=== PATIENT | female | born 1965 | race Hispanic/Latino ===

== ENCOUNTER 2017-04-23 13:46 | Outpatient (CLI) | payer OTHER ==
--- NOTE | 2017-04-23 16:33 | Mammography Report ---
BONE DEXA:04/23/17 13:46:00 CLINICAL: Postmenopausal. COMPARISON: 02/11/14 TECHNIQUE: Two site bone DEXA performed on an Hologic scanner. FINDINGS: The average BMD of the lumbar spine L1-L4 is 0.999g/cm squared with a T-score of -0.4 and a Z-score of +0.5. This compares to 1.024g/cm squared on the last exam and represents a -2.5% change from the previous baseline. The average BMD of the left hip is 0.925g/cm squared with a T-score of -0.1 and a Z-score of +0.5. This compares to 1.035g/cm squared on the last exam and represents a -1.6% change from the previous baseline. IMPRESSION: 1. WHO classification: Normal with average fracture risk based on the spine and left hip measurements. 2. A modest decline in both spine and left hip BMD compared to the prior exam.. RECOMMENDATION: Clinical correlation and routine screening. DEFINITIONS: BMD = Bone Mineral Density T-score = BMD related to mean peak bone mass of young adult (mean expressed in Standard Deviation) Z-score = Age matched BMD expressed in SD World Health Organization (WHO) Diagnostic Criteria Normal T-score > -1 SD Osteopenia T-score between -1 and -2.4 SD Osteoporosis T-score -2.5 SD or below NOTE: BMD is not the only risk factor for fracture; also consider factors such as the patient's age, risk of falling, previous osteoporotic fracture, family history of osteoporotic fractures, current smoker, and low body weight. Z-scores are not calculated if >80 years of age.
== END 2017-04-23 13:47 | disposition home or self-care (01) ==
LOC: SPVWC 13:46
PROVIDERS: ATTEND Family Medicine
DX: Z13.820 Encounter for screening for osteoporosis (principal); Z78.0 Asymptomatic menopausal state
CPT/HCPCS: 77080